=== PATIENT | male | born 1940 | race Caucasian/White ===

== ENCOUNTER 2024-07-24 12:49 | Emergency (ER) | payer MEDICARE, OTHER ==
[~2024-07-24] VITALS: Ht 167.6 cm; Wt 59.0 kg
[2024-07-24 12:57] VITALS: TEMP 98.2
[2024-07-24] MEDS ORDERED: LORAZEPAM 0.5 MG TABLET ONE (13:17)
[2024-07-24] MEDS: LORAZEPAM 1 MG TABLET PO ONE (13:20)
[2024-07-24 13:34] LABS: BASOPHILS # (AUTO) 0.1 K/uL (0.0-0.2); BASOPHILS % (AUTO) 0.8 % (0.0-2.0); EOSINOPHILS # (AUTO) 0.1 K/uL (0.0-0.7); EOSINOPHILS % (AUTO) 1.8 % (0.0-6.0); HEMATOCRIT 43 % (39-51); HEMOGLOBIN 14.6 g/dL (13.5-17.5); LYMPHOCYTES # (AUTO) 2.3 K/uL (0.8-4.8); LYMPHOCYTES % (AUTO) 30.7 % (20.0-44.0); MEAN CORPUSCULAR HEMOGLOBIN 30 PG (26.0-33.0); MEAN CORPUSCULAR HGB CONC 34 g/dl (31.0-36.0); MEAN CORPUSCULAR VOLUME 87 fL (80-96); MONOCYTES # (AUTO) 0.5 K/uL (0.1-1.30); MONOCYTES % (AUTO) 6.4 % (2.0-12.0); NEUTROPHILS # (AUTO) 4.5 K/uL (1.8-8.9); NEUTROPHILS % (AUTO) 60.3 % (43.0-81.0); PLATELET COUNT (AUTO) 244 K/uL (150-450); RED BLOOD CELL COUNT(AUTO) 4.93 MIL/uL (4.5-6.0); RED CELL DISTRIBUTION WIDTH 13.7 % (11.5-15.0); WHITE BLOOD COUNT (AUTO) 7.5 K/uL (4.3-11.0)
[2024-07-24 13:45] LABS: CALCIUM, SERUM 9.3 mg/dL (8.5-10.1); CARBON DIOXIDE 25 mmol/L (21-32); CHLORIDE 101 mmol/L (98-107); CREATININE 1.1 mg/dL (0.6-1.3); GLUCOSE 159 mg/dL (74-106); POTASSIUM 3.8 mmol/L (3.5-5.1); SODIUM SERUM 138 mmol/L (136-145); UREA NITROGEN, BLOOD 15 mg/dL (7-18)
[2024-07-24 15:08] VITALS: BP 140/76; O2SAT 98
== END 2024-07-24 15:06 | disposition home or self-care (01) ==
LOC: ER 12:49
DX: F41.9 Anxiety disorder, unspecified (principal); I10 Essential (primary) hypertension; R42 Dizziness and giddiness; E11.9 Type 2 diabetes mellitus without complications; E78.00 Pure hypercholesterolemia, unspecified; Z88.0 Allergy status to penicillin
CPT/HCPCS: 36415; 80048-TC; 84484-TC; 85025-TC

== ENCOUNTER 2024-08-31 23:18 | Emergency (ER) | payer MEDICARE, OTHER ==
[~2024-08-31] VITALS: Ht 157.5 cm; Wt 68.0 kg
[2024-09-01 01:01] VITALS: TEMP 98.1
[2024-09-01 01:02] VITALS: BP 135/86; O2SAT 100
== END 2024-09-01 01:08 | disposition home or self-care (01) ==
LOC: ER 23:29
DX: F41.9 Anxiety disorder, unspecified (principal); E11.9 Type 2 diabetes mellitus without complications; E78.00 Pure hypercholesterolemia, unspecified; I10 Essential (primary) hypertension; Z88.0 Allergy status to penicillin
CPT/HCPCS: 82962-TC

== ENCOUNTER 2024-09-19 07:07 | Emergency (ER) | payer MEDICARE, OTHER ==
[~2024-09-19] VITALS: Ht 165.1 cm; Wt 63.5 kg
[2024-09-19 07:34] LABS: BASOPHILS # (AUTO) 0.1 K/uL (0.0-0.2); BASOPHILS % (AUTO) 0.7 % (0.0-2.0); EOSINOPHILS # (AUTO) 0.1 K/uL (0.0-0.7); EOSINOPHILS % (AUTO) 1.2 % (0.0-6.0); HEMATOCRIT 49 % (39-51); HEMOGLOBIN 16.8 g/dL (13.5-17.5); LYMPHOCYTES # (AUTO) 2.9 K/uL (0.8-4.8); LYMPHOCYTES % (AUTO) 32.4 % (20.0-44.0); MEAN CORPUSCULAR HEMOGLOBIN 30 PG (26.0-33.0); MEAN CORPUSCULAR HGB CONC 34 g/dl (31.0-36.0); MEAN CORPUSCULAR VOLUME 86 fL (80-96); MONOCYTES # (AUTO) 0.5 K/uL (0.1-1.30); MONOCYTES % (AUTO) 5.1 % (2.0-12.0); NEUTROPHILS # (AUTO) 5.4 K/uL (1.8-8.9); NEUTROPHILS % (AUTO) 60.6 % (43.0-81.0); PLATELET COUNT (AUTO) 322 K/uL (150-450); RED BLOOD CELL COUNT(AUTO) 5.67 MIL/uL (4.5-6.0); RED CELL DISTRIBUTION WIDTH 13.5 % (11.5-15.0); WHITE BLOOD COUNT (AUTO) 8.9 K/uL (4.3-11.0)
[2024-09-19 07:40] LABS: CALCIUM, SERUM 9.9 mg/dL (8.5-10.1); CARBON DIOXIDE 29 mmol/L (21-32); CHLORIDE 102 mmol/L (98-107); CREATININE 0.9 mg/dL (0.6-1.3); GLUCOSE 134 mg/dL (74-106); POTASSIUM 3.5 mmol/L (3.5-5.1); SODIUM SERUM 139 mmol/L (136-145); UREA NITROGEN, BLOOD 13 mg/dL (7-18)
[2024-09-19 10:52] VITALS: BP 138/74; TEMP 97.9; O2SAT 98
== END 2024-09-19 10:53 | disposition home or self-care (01) ==
LOC: ER 07:11
DX: I10 Essential (primary) hypertension (principal); M79.602 Pain in left arm; M54.2 Cervicalgia; E03.9 Hypothyroidism, unspecified; E11.9 Type 2 diabetes mellitus without complications; E78.00 Pure hypercholesterolemia, unspecified; Z88.0 Allergy status to penicillin; Z88.5 Allergy status to narcotic agent
CPT/HCPCS: 36415; 71045-TC; 80048-TC; 84484-TC; 85025-TC

== ENCOUNTER 2024-10-30 21:32 | Inpatient (IN) | payer MEDICARE, OTHER ==
[~2024-10-30] VITALS: Ht 165.1 cm; Wt 54.0 kg
[2024-10-30 22:15] LABS: BASOPHILS # (AUTO) 0.1 K/uL (0.0-0.2); BASOPHILS % (AUTO) 0.8 % (0.0-2.0); EOSINOPHILS # (AUTO) 0.2 K/uL (0.0-0.7); EOSINOPHILS % (AUTO) 2.8 % (0.0-6.0); HEMATOCRIT 41 % (39-51); HEMOGLOBIN 14.1 g/dL (13.5-17.5); LYMPHOCYTES # (AUTO) 2.9 K/uL (0.8-4.8); LYMPHOCYTES % (AUTO) 42.8 % (20.0-44.0); MEAN CORPUSCULAR HEMOGLOBIN 30 PG (26.0-33.0); MEAN CORPUSCULAR HGB CONC 35 g/dl (31.0-36.0); MEAN CORPUSCULAR VOLUME 85 fL (80-96); MONOCYTES # (AUTO) 0.5 K/uL (0.1-1.30); MONOCYTES % (AUTO) 6.9 % (2.0-12.0); NEUTROPHILS # (AUTO) 3.2 K/uL (1.8-8.9); NEUTROPHILS % (AUTO) 46.7 % (43.0-81.0); PLATELET COUNT (AUTO) 276 K/uL (150-450); RED BLOOD CELL COUNT(AUTO) 4.75 MIL/uL (4.5-6.0); RED CELL DISTRIBUTION WIDTH 13.1 % (11.5-15.0); WHITE BLOOD COUNT (AUTO) 6.8 K/uL (4.3-11.0)
[2024-10-30 22:39] LABS: CALCIUM, SERUM 9.6 mg/dL (8.5-10.1); CARBON DIOXIDE 25 mmol/L (21-32); CHLORIDE 103 mmol/L (98-107); CREATININE 0.9 mg/dL (0.6-1.3); GLUCOSE 121 mg/dL (74-106); SODIUM SERUM 137 mmol/L (136-145); UREA NITROGEN, BLOOD 16 mg/dL (7-18)
[2024-10-31] MEDS ORDERED: METF-440 PO (03:20)
[2024-10-31] MEDS ORDERED: LOSA50TA39 PO (03:21)
[2024-10-31] MEDS ORDERED: LORA-259 PO (03:23)
[2024-10-31] MEDS ORDERED: HYDR-4076 PO (03:23)
[2024-10-31] MEDS ORDERED: PROP10TA10 PO (03:24)
[2024-10-31] MEDS ORDERED: ACETAMINOPHEN 325 MG TABLET PO PRN (03:30)
[2024-10-31] MEDS ORDERED: Z GUARD REMEDY 4 OZ OINT TP PRN (03:30)
[2024-10-31] MEDS ORDERED: MAGNESIUM HYDROXIDE 30 ML UDC PO PRN (03:30)
[2024-10-31] MEDS ORDERED: MAG HYDROX/AL HYDROX/SIMETH 30 ML UDC PO PRN (03:30)
[2024-10-31] MEDS ORDERED: ONDANSETRON HCL/PF 4 MG/2 ML VIAL IVP PRN (03:30)
[2024-10-31] MEDS ORDERED: PANTOPRAZOLE 40 MG TABLET.DR PO ONE (07:48)
[2024-10-31] MEDS ORDERED: ASPIRIN 81 MG TAB.CHEW ONE (07:48)
[2024-10-31] MEDS: PANTOPRAZOLE 40 MG TABLET.DR PO SCH (07:51)
[2024-10-31] MEDS: ASPIRIN EC 81 MG TABLET.DR PO SCH (07:51)
[2024-10-31] MEDS ORDERED: LORA-258 PO (08:09)
[2024-10-31 08:37] VITALS: BP 177/102; TEMP 97.5; O2SAT 98
[2024-10-31] MEDS: BLOOD SUGAR DIAGNOSTIC 1 EACH STRIP IN SCH (08:59)
[2024-10-31] MEDS ORDERED: VALSARTAN 80 MG TABLET PO SCH (09:00)
[2024-10-31] MEDS ORDERED: DEXTROSE 50%-WATER 50 ML DISP.SYRIN IV PRN (09:00)
[2024-10-31] MEDS ORDERED: LOSARTAN POTASSIUM 50 MG TABLET PO SCH (09:00)
[2024-10-31] MEDS: PROPRANOLOL HCL 10 MG TABLET PO SCH (09:00)
[2024-10-31] MEDS: VALSARTAN 80 MG TABLET PO SCH (09:10)
[2024-10-31] MEDS: METOPROLOL TARTRATE INJ 5 MG/5 ML AMPUL IVP PRN (10:50)
[2024-10-31] MEDS ORDERED: NITROGLYCERIN 0.4 MG/TAB BOTTLE ONE (10:55)
[2024-10-31] MEDS ORDERED: METOPROLOL TARTRATE INJ 5 MG/5 ML AMPUL ONE (10:55)
[2024-10-31] MEDS ORDERED: IV NS 0.9% 250 ML IV ONE (10:59)
[2024-10-31] MEDS ORDERED: CT SWABBABLE VALVE TRANS SET 1 EA INFUS.SET MC ONE (10:59)
[2024-10-31] MEDS ORDERED: IOHEXOL-350 100 ML VIAL IV ONE (10:59)
[2024-10-31] MEDS: NITROGLYCERIN 0.4 MG/TAB BOTTLE SL ONE (11:06)
[2024-10-31 11:34] LABS: BASOPHILS % (AUTO) 0.5 % (0.0-2.0); EOSINOPHILS # (AUTO) 0.1 K/uL (0.0-0.7); EOSINOPHILS % (AUTO) 1.3 % (0.0-6.0); HEMATOCRIT 42 % (39-51); HEMOGLOBIN 14.3 g/dL (13.5-17.5); LYMPHOCYTES # (AUTO) 1.7 K/uL (0.8-4.8); LYMPHOCYTES % (AUTO) 21.7 % (20.0-44.0); MEAN CORPUSCULAR HEMOGLOBIN 29 PG (26.0-33.0); MEAN CORPUSCULAR HGB CONC 34 g/dl (31.0-36.0); MEAN CORPUSCULAR VOLUME 86 fL (80-96); MONOCYTES # (AUTO) 0.5 K/uL (0.1-1.30); MONOCYTES % (AUTO) 5.9 % (2.0-12.0); NEUTROPHILS # (AUTO) 5.6 K/uL (1.8-8.9); NEUTROPHILS % (AUTO) 70.6 % (43.0-81.0); PLATELET COUNT (AUTO) 262 K/uL (150-450); RED BLOOD CELL COUNT(AUTO) 4.87 MIL/uL (4.5-6.0); RED CELL DISTRIBUTION WIDTH 13.3 % (11.5-15.0); WHITE BLOOD COUNT (AUTO) 7.9 K/uL (4.3-11.0)
[2024-10-31] MEDS: LORAZEPAM 0.5 MG TABLET PO PRN (11:35)
[2024-10-31 11:50] LABS: CALCIUM, SERUM 9.5 mg/dL (8.5-10.1); CARBON DIOXIDE 26 mmol/L (21-32); CHLORIDE 101 mmol/L (98-107); CHOLESTEROL 128 mg/dL (<200); CREATININE 0.8 mg/dL (0.6-1.3); GLUCOSE 173 mg/dL (74-106); HDL CHOLESTEROL 50 mg/dL (40-60); LDL 69 mg/dL (0-99); MAGNESIUM 2.3 mg/dL (1.8-2.4); PHOSPHORUS 2.7 mg/dL (2.5-4.9); POTASSIUM 3.8 mmol/L (3.5-5.1); SODIUM SERUM 135 mmol/L (136-145); TRIGLYCERIDES 99 mg/dL (30-150); UREA NITROGEN, BLOOD 13 mg/dL (7-18)
[2024-10-31] MEDS: INSULIN REGULAR, HUMAN 100 UNIT/ML 3 ML VIAL SQ PRN (11:50)
[2024-10-31] MEDS ORDERED: METOPROLOL TARTRATE 50 MG TABLET PO SCH (12:00)
[2024-10-31] MEDS: METOPROLOL TARTRATE 50 MG TABLET PO SCH (12:35)
[2024-10-31] MEDS: ENOXAPARIN SODIUM 40 MG/0.4 ML DISP.SYRIN SQ SCH (16:39)
[2024-10-31 20:00] VITALS: BP 165/81; TEMP 97.7; O2SAT 98
[2024-11-01] VITALS (7 sets, daily range): BP systolic 150–195; BP diastolic 85–101; TEMP 97.4–98.1; O2SAT 97–99
[2024-11-01] MEDS: hydrALAZINE HCL IV 20 MG VIAL IV PRN (03:10)
[2024-11-01] MEDS: LOSARTAN POTASSIUM 50 MG TABLET PO ONE (03:50)
[2024-11-01 06:52] LABS: BASOPHILS % (AUTO) 0.4 % (0.0-2.0); EOSINOPHILS # (AUTO) 0.2 K/uL (0.0-0.7); EOSINOPHILS % (AUTO) 2.1 % (0.0-6.0); HEMATOCRIT 40 % (39-51); HEMOGLOBIN 13.9 g/dL (13.5-17.5); LYMPHOCYTES # (AUTO) 2.3 K/uL (0.8-4.8); LYMPHOCYTES % (AUTO) 27.9 % (20.0-44.0); MEAN CORPUSCULAR HEMOGLOBIN 29 PG (26.0-33.0); MEAN CORPUSCULAR HGB CONC 35 g/dl (31.0-36.0); MEAN CORPUSCULAR VOLUME 85 fL (80-96); MONOCYTES # (AUTO) 0.6 K/uL (0.1-1.30); MONOCYTES % (AUTO) 6.9 % (2.0-12.0); NEUTROPHILS # (AUTO) 5.1 K/uL (1.8-8.9); NEUTROPHILS % (AUTO) 62.7 % (43.0-81.0); PLATELET COUNT (AUTO) 256 K/uL (150-450); RED BLOOD CELL COUNT(AUTO) 4.73 MIL/uL (4.5-6.0); RED CELL DISTRIBUTION WIDTH 13.2 % (11.5-15.0); WHITE BLOOD COUNT (AUTO) 8.2 K/uL (4.3-11.0)
[2024-11-01 07:02] LABS: CALCIUM, SERUM 9.5 mg/dL (8.5-10.1); CREATININE 0.8 mg/dL (0.6-1.3); MAGNESIUM 2.3 mg/dL (1.8-2.4); POTASSIUM 3.8 mmol/L (3.5-5.1)
[2024-11-01] MEDS: METOPROLOL SUCCINATE 50 MG TAB.SR.24H PO SCH (08:30)
[2024-11-01] MEDS ORDERED: METO50TA7 PO (08:54)
[2024-11-01] MEDS ORDERED: AMLO-213 PO (08:54)
[2024-11-01] MEDS ORDERED: DOXA1TAB4 PO (08:54)
[2024-11-01] MEDS ORDERED: Aspirin Ec PO (08:54)
[2024-11-01] MEDS: AMLODIPINE BESYLATE 10 MG TABLET PO SCH (09:21)
[2024-11-01] MEDS: hydrALAZINE HCL 25 MG TABLET PO ONE (11:39)
[2024-11-01] MEDS: hydrALAZINE HCL IV 20 MG VIAL IV ONE (13:06)
[2024-11-01] MEDS: hydrALAZINE HCL 50 MG TABLET PO SCH (16:48)
[2024-11-01] MEDS ORDERED: DOXAZOSIN MESYLATE (1 MG) 1 MG TABLET PO SCH (22:00)
== END 2024-11-01 21:40 | disposition left against medical advice (07) | DRG 311 ==
LOC: ER 21:34 → TELE 10-31 06:36
PROVIDERS: ADMIT Internal Medicine; ATTEND Internal Medicine
DX: I20.9 Angina pectoris, unspecified (principal); E11.9 Type 2 diabetes mellitus without complications; I10 Essential (primary) hypertension; E03.9 Hypothyroidism, unspecified; F41.9 Anxiety disorder, unspecified; Z88.0 Allergy status to penicillin; Z79.84 Long term (current) use of oral hypoglycemic drugs
CPT/HCPCS: 36415; 71045-TC; 75574; 80048-TC; 80061-TC; 82962-TC; 83735-TC; 84100-TC; 84443-TC; 84484-TC; 85025-TC; 93307-TC; G0378; J0360; J1650; J1815; J3490; J7050; Q9967

== ENCOUNTER 2025-06-15 04:08 | Emergency (ER) | payer MEDICARE, OTHER ==
[~2025-06-15] VITALS: Ht 165.1 cm; Wt 55.8 kg
[~2025-06-15 04:08] MED LIST: AMLO-213 PO; Aspirin Ec PO; DOXA1TAB4 PO; HYDR-4076 PO; LORA-258 PO; LOSA50TA39 PO; METF-440 PO; METO50TA7 PO
[2025-06-15] MEDS ORDERED: CEPHALEXIN MONOHYDRATE 500 MG CAPSULE PO ONE (04:20)
--- NOTE | 2025-06-15 04:20 | NUR ---
[id number] [facility], CAME W CC OF LEFT TESTICULAR PAIN. CAME WITH IFC F20
[2025-06-15] MEDS: CEPHALEXIN MONOHYDRATE 500 MG CAPSULE PO ONE (04:32)
--- NOTE | 2025-06-15 04:44 | NUR ---
BLADDER SCAN DONE, 215ML URINE NOTED. MADE AWARE
[2025-06-15] MEDS ORDERED: IBUPROFEN 600 MG TABLET ONE (04:50)
--- NOTE | 2025-06-15 05:00 | NUR ---
CATHETER REMOVED; REINSERTED NEW CATHETER
[2025-06-15] MEDS: IBUPROFEN 600 MG TABLET PO ONE (05:01)
[2025-06-15] MEDS: NAPROXEN 250 MG TABLET PO ONE (05:01)
--- NOTE | 2025-06-15 05:04 | NUR ---
Patient discharged to home in stable condition. Written and verbal after care instructions given. Patient verbalizes understanding of instruction.
[2025-06-15 05:07] VITALS: BP 135/71; TEMP 98; O2SAT 98
== END 2025-06-15 05:08 | disposition home or self-care (01) ==
LOC: ER 04:14
DX: T83.091A Other mechanical complication of indwelling urethral catheter, initial encounter (principal); N39.0 Urinary tract infection, site not specified; I11.9 Hypertensive heart disease without heart failure; F41.9 Anxiety disorder, unspecified; E78.00 Pure hypercholesterolemia, unspecified; E11.9 Type 2 diabetes mellitus without complications; E03.9 Hypothyroidism, unspecified; Z46.6 Encounter for fitting and adjustment of urinary device; Z79.84 Long term (current) use of oral hypoglycemic drugs; Z79.899 Other long term (current) drug therapy; Z88.0 Allergy status to penicillin; Z88.5 Allergy status to narcotic agent; Z91.148 Patient's other noncompliance with medication regimen for other reason; Y73.8 Miscellaneous gastroenterology and urology devices associated with adverse incidents, not elsewhere classified